=== PATIENT | female | born 1940 | race Caucasian/White ===

== ENCOUNTER 2018-01-09 10:34 | Emergency (ER) | payer OTHER, MEDICARE ==
[~2018-01-09] VITALS: Ht 154.9 cm; Wt 90.7 kg
[~2018-01-09 10:34] MED LIST: ADVAIR 100-501 EACH INH; ADVAIR DISKU 11 UNIT INH; GUAIFENESIN-COD10 ML PO; LEXAPRO 10MG10 MG PO; NUCYNTA100 MG PO; OXYCODONE5 MG PO; POLYTRIM O200 GTT/BO OPH; PROAIR HFA8.5 GM INH; ROBITUSSIN W/CO10 ML PO; TESSALON PERLE100 M1 PO; TOPIRAMATE50 MG PO; TRAZODONE50 MG PO
[2018-01-09 12:04] LABS: ABSOLUTE BASOPHIL COUNT 0.1 /CUMM (0.0-0.2); ABSOLUTE EOSINOPHIL COUNT 0.1 /CUMM (0.0-0.7); ABSOLUTE GRANULOCYTE CT 8.9 /CUMM (1.4-6.5); ABSOLUTE MONOCYTE COUNT 0.8 /CUMM (0.10-0.60); BASOPHIL % 0.8 % (0.0-2.0); EOSINOPHIL % 1.1 % (0-5); GRANULOCYTE % 81.4 % (42.2-75.2); HEMATOCRIT 38.1 % (37-47); MEAN CORPUSCULAR HGB CONC 33.7 G/DL (33.0-37.0); MEAN PLATELET VOLUME 9.4 FL (7.4-10.4); PLATELET COUNT 179 /CUMM (130-400); RBC DISTRIBUTION WIDTH 14.7 % (11.5-14.5); RED BLOOD CELL CT 4.28 /CUMM (4.20-5.40); WHITE BLOOD CELL COUNT 10.9 /CUMM (4.8-10.8)
--- NOTE | 2018-01-09 13:21 | RADIOLOGY REPORT ---
EXAMINATION: XR CHEST CLINICAL INFORMATION: Chest pain COMPARISON: Prior chest imaging, the most recent on 09/16/2016 and 06/14/2016 TECHNIQUE: 2 views of the chest were obtained. FINDINGS: Stable cardiomediastinal silhouette with mild tortuosity of the thoracic aorta. No pulmonary venous congestion. The lungs are clear. No pleural effusion or pneumothorax. Mild anterior endplate osteophytosis of the thoracic spine noted. IMPRESSION: Stable chest x-ray without acute pulmonary findings.
--- NOTE | 2018-01-09 15:31 | ED CARDIAC/CP/PALPITATIONS ---
History of Present Illness General Chief Complaint: Chest Pain Stated Complaint: CP RADIATING TO LEFT ARM AND NECK Source: patient Exam Limitations: no limitations Vital Signs & Intake/Output Vital Signs & Intake/Output Vital Signs Date Time Temp Pulse Resp B/P B/P Pulse O2 O2 Flow FiO2 Mean Ox Delivery Rate 01/09 1834 97.7 73 18 134/71 94 Room Air 01/09 1537 Room Air 01/09 1352 99.1 82 18 142/80 95 Room Air 01/09 1050 98.5 84 18 157/85 98 Room Air Allergies Coded Allergies: NSAIDS (Non-Steroidal Anti-Inflamma (UNKNOWN 11/09/15) diclofenac (UNKNOWN 11/09/15) Uncoded Allergies: HAIR DYE (Severe, UNKNOWN 11/09/15) Triage Note: 77 YO FEMALE TO TRIAGE C/O L SIDED AW PAING THAT STARTED YESTERDAY, REPORTS PAIN IS NOW RADIATING DOWN TO L SHOULDER INTO L ARM. DENIES CHEST PAIN/ABD APIN/NVD. EKG COMPLETED ON ARRIVAL AND SHOWN TO MD. Triage Nurses Notes Reviewed? 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 Patient is on chronic narcotics with no relief of her symptoms. Denies any mechanism injury denies any headache trauma extremity paresthesia or weakness chest pain cough Patient is also complaining of 3 weeks of decreased sensation of taste after she was using Mucinex (Ant Thompson) Reconcile Medications Albuterol Sulfate (Proair Hfa) 8.5 GM HFA.AER.AD 2 PUF INH Q4-6 PRN PRN DYSPNEA Benzonatate (Tessalon Perle) 100 MG CAPSULE 1 CAP PO TID PRN COUGH Diazepam (Valium) 2 MG TABLET 1 TAB PO BID PRN MUSCLE RELAXOR Escitalopram Oxalate (Lexapro 10MG) 10 MG TAB 1 TAB PO DAILY ANXIETY ( Reported) Fluticasone-Salmeterol (Advair 100-50 Diskus) 1 UNIT INH 1 PUF INH BID ASTHMA (Reported) Fluticasone-Salmeterol (Advair 100-50 Diskus) 1 EACH BLST.W.DEV 1 PUF INH BID ASTHMA Oxycodone Hydrochloride (Oxycodone) 5 MG TAB 1 TAB PO 4 TIMES/DAY PAIN ( Reported) Robitussin AC (Guaifenesin-Codeine Syrup) 10 ML LIQUID 10 ML PO Q6 PRN COUGH Robitussin AC (Guaifenesin-Codeine Syrup) 10 ML UDC 5-10 ML PO Q6P PRN COUGH TRAZODONE HCL (Trazodone HCl) 50 MG TAB 1 TAB PO QPM SLEEP (Reported) (Edward Alanis DO) Past History Travel History Traveled to [place] past 21 day No Medical History Any Pertinent Medical History? see below for history Neurological: NONE EENT: NONE Cardiovascular: hyperlipidemia Respiratory: asthma Gastrointestinal: NONE Hepatic: NONE Renal: NONE Musculoskeletal: osteoarthritis, osteoporosis Psychiatric: NONE Endocrine: NONE Blood Disorders: NONE Cancer(s): NONE CHILD SUPPORT OFFICER/Reproductive: NONE History of CDIFF: No Surgical History Surgical History: right knee, right arm Psychosocial History What is your primary language Welsh Tobacco Use: Never used Family History Hx Contributory? No (Ant Thompson) Review of Systems Review of Systems Constitutional: Reports: no symptoms. EENTM: Reports: no symptoms. Respiratory: Reports: see HPI. Cardiovascular: Reports: no symptoms. GI: Reports: no symptoms. Genitourinary: Reports: no symptoms. Musculoskeletal: Reports: see HPI, muscle pain, muscle stiffness. Skin: Reports: no symptoms. Neurological/Psychological: Reports: no symptoms. Hematologic/Endocrine: Reports: no symptoms. Immunologic/Allergic: Reports: no symptoms. All Other Systems: Reviewed and Negative (Ant Thompson) Physical Exam Physical Exam General Appearance: no apparent distress, alert, comfortable Head: atraumatic Eyes: Bilateral: normal appearance. Ears, Nose, Throat: hearing grossly normal Neck: limited range of motion, no midline tenderness, LEFT LATERAL MUSCULAR AND UPPER TRAPEZIUS TENDERNESS AND SPASM Respiratory: normal breath sounds, chest non-tender, no respiratory distress Cardiovascular: regular rate/rhythm Peripheral Pulses: 2+ radial (L) Gastrointestinal: normal bowel sounds, soft, non-tender Extremities: no edema Skin: intact, normal color, warm/dry Core Measures ACS in differential dx? Yes CVA/TIA Diagnosis No Sepsis Present: No Sepsis Focused Exam Completed? No (Ant Thompson) Progress Differential Diagnosis: AMI, aortic dissection, atrial fibrillation, cholecystitis, CHF/pulm edema, costochondritis, hyperkalemia, hypovolemia, hyperthyroid, hyperventilation, intracranial hemorrhage, musculoskeletal pain, myocarditis, pancreatitis, pericarditis, pneumonia, pneumothorax, PSVT, pulmonary embolism, PUD/GERD, PVCs/PACs, respiratory failure, rib fracture, sepsis, unstable angina, V-fib/V-Tach, WPW syndrome Plan of Care: Orders Procedure Date/time Status TROPONIN LEVEL 01/09 1553 Complete D-DIMER 01/09 1553 Complete EKG 01/09 1553 Active Add-on Test (ER Only) 01/09 1551 Active D-DIMER 01/09 1157 Complete TROPONIN LEVEL 01/09 1112 Complete COMPREHENSIVE METABOLIC PANEL 01/09 1112 Complete CBC WITHOUT DIFFERENTIAL 01/09 1112 Complete EKG 01/09 1043 Active Laboratory Tests 01/09/18 1717: Troponin I < 0.01, D-Dimer High Sensitivty 247 H 01/09/18 1157: Anion Gap 9, Estimated GFR > 60, BUN/Creatinine Ratio 8.6, Glucose 110 H, Calcium 8.7, Total Bilirubin 0.5, AST 19, ALT 21, Alkaline Phosphatase 137 H, Troponin I < 0.01, Total Protein 6.7, Albumin 3.5, Globulin 3.2, Albumin/ Globulin Ratio 1.1, D-Dimer High Sensitivty 305 H, CBC w Diff NO MAN DIFF REQ, RBC 4.28, MCV 89.0, MCH 30.0, MCHC 33.7, RDW 14.7 H, MPV 9.4, Gran % 81.4 H, Lymphocytes % 9.6 L, Monocytes % 7.1, Eosinophils % 1.1, Basophils % 0.8, Absolute Granulocytes 8.9 H, Absolute Lymphocytes 1.0 L, Absolute Monocytes 0.8 H, Absolute Eosinophils 0.1, Absolute Basophils 0.1 Patient upon initial presentation was no apparent distress, patient has no concerns of fracture Nexus criteria 0 patient does have concerns of left upper trapezius and muscular neck strain and spasms Patient will receive second set troponin Patient had significant improvement of presenting complaints of left shoulder and upper trapezius and neck pain. Patient received second set troponin unremarkable findings as well as EKG. Upon discharge patient looks well no apparent distress and will comply with discharge instructions and had no questions. No concerns of pulmonary embolism Discussed patient with Diagnostic Imaging: Viewed by Me: Radiology Read. Radiology Impression: no acute abnormality Initial ED EK BPM,NSR Repeat EKG: unchanged Comments: PATIENT: TRACI STOUT PRESENT AGE: 77 PATIENT ACCOUNT NO: [id number] : 40 LOCATION: [facility] ORDERING PHYSICIAN: Ken Britt DO (TBS) SERVICE DATE: 01/09/18 EXAM TYPE: RAD - XRY-CHEST XRAY, TWO VIEWS EXAMINATION: XR CHEST CLINICAL INFORMATION: Chest pain COMPARISON: Prior chest imaging, the most recent on 09/16/2016 and 06/14/2016 TECHNIQUE: 2 views of the chest were obtained. FINDINGS: Stable cardiomediastinal silhouette with mild tortuosity of the thoracic aorta. No pulmonary venous congestion. The lungs are clear. No pleural effusion or pneumothorax. Mild anterior endplate osteophytosis of the thoracic spine noted. IMPRESSION: Stable chest x-ray without acute pulmonary findings. DICTATED BY: Denys Varela MD DATE/TIME DICTATED:01/09/181315 CROP SCOUT:MARY DATE/TIME TRANSCRIBED:01/09/181315 (Ant Thompson) Departure Departure Disposition: HOME OR SELF CARE Condition: Stable Clinical Impression Primary Impression: Muscle spasms of neck Secondary Impressions: Torticollis, spasmodic Referrals: Eda White MD (PCP/Family) Additional Instructions: As discussed continue home medications as directed begin the prescription of Valium for your symptoms. Begin icing or heating the area 20 minutes every 2 hours, if no better in 2 days follow-up with doctor. If symptoms worsen or if he develop a new concerning symptom return to the emergency room. Prescriptions are waiting at [facility]. Departure Forms: Customer Survey General Discharge Information Prescriptions: Current Visit Scripts Diazepam (Valium) 1 TAB PO BID PRN MUSCLE RELAXOR #8 TAB (Ant Thompson) PA/DIE SET UP WORKER Co-Sign Statement Statement: ED Attending supervision documentation- [] I saw and evaluated the patient. I have also reviewed all the pertinent lab results and diagnostic results. I agree with the findings and the plan of care as documented in the PA's/DIE SET UP WORKER's documentation. [X] I have reviewed the ED Record and agree with the PA's/DIE SET UP WORKER's documentation. [] Additions or exceptions (if any) to the PAs/DIE SET UP WORKER's note and plan are summarized below: [] (Edward Alanis DO) Critical Care Note Critical Care Note Critical Care Time: non-applicable (Aimee CONTRERAS,Ant)
[2018-01-09] MEDS ORDERED: VALIUM2 M1 PO (18:08)
[2018-01-09 18:34] VITALS: BP 134/71
== END 2018-01-09 18:48 ==
LOC: ERH 10:34
PROVIDERS: Physician Assistant Medical
DX: M62.838 Other muscle spasm (principal); M43.6 Torticollis
CPT/HCPCS: 71046; 93005; 93010